=== PATIENT | female | born 1960 | race Caucasian/White ===

== ENCOUNTER 2018-10-27 09:33 | Day surgery (SDC) | payer OTHER ==
[2018-10-22 14:44] VITALS: BMI 30.6
[2018-10-27] MEDS ORDERED: Oxymetazoline HCl 0.05% ( 15 ML ) ONE ×2 (11:11→11:41)
[2018-10-27] MEDS ORDERED: Lidocaine 1% w/Epinephrine 1:100K 30 ML VIAL ONE (11:41)
[2018-10-27] MEDS ORDERED: Fentanyl 100 MCG/2 ML VIAL ONE ×2 (11:49→13:19)
[2018-10-27] MEDS ORDERED: Midazolam HCl 2 mg/2 ml Vial ONE (11:49)
[2018-10-27] MEDS ORDERED: Hydrocodone-Acetamin 15 ML UDCUP ONE (14:27)
[2018-10-27] MEDS ORDERED: Glycopyrrolate 0.2 MG/ML 5 ML SYRINGE ONE (18:56)
[2018-10-27] MEDS ORDERED: PROPOFOL 200 MG/20 ML VIAL ONE (18:56)
[2018-10-27] MEDS ORDERED: Dexamethasone 20 MG/5 ML VIAL ONE (18:56)
[2018-10-27] MEDS ORDERED: Lidocaine 1% PF 5 ML VIAL ONE (18:56)
[2018-10-27] MEDS ORDERED: Ondansetron PF 4 MG/2 ML Vial ONE (18:56)
[2018-10-27] MEDS ORDERED: PHENYLEPHRINE-NS 100 MCG/ML 10 ML SYRINGE ONE (18:56)
--- NOTE | 2018-10-28 01:26 | OP ---
DATE OF PROCEDURE: 10/27/2018 PREOPERATIVE DIAGNOSES: 1. Chronic rhinosinusitis. 2. Bilateral inferior turbinate hypertrophy. 3. Nasal obstruction. POSTOPERATIVE DIAGNOSES: 1. Chronic rhinosinusitis. 2. Bilateral inferior turbinate hypertrophy. 3. Nasal obstruction. PROCEDURES: 1. Bilateral endoscopic sinus surgery total ethmoidectomies. 2. Bilateral endoscopic sinus surgery maxillary antrostomies. 3. Bilateral endoscopic sinus surgery frontal sinusotomies. 4. Bilateral endoscopic sinus surgery sphenoidotomies. 5. Bilateral inferior turbinate submucosal resection. ESTIMATED BLOOD LOSS: 20 mL. COMPLICATIONS: None. ANESTHESIA: GETA. DESCRIPTION OF PROCEDURE: The patient was taken to the operating room and placed supine on table. General endotracheal anesthesia was obtained by the anesthesia staff. The tube was secured in the left lower lip. The patient was then prepped and draped for standard nasal procedures. Following this, a 0 degree endoscopes was used to examine the nasal cavity. 1% lidocaine with 1:100,000 epinephrine was injected into the inferior turbinates and middle turbinates and lateral nasal wall. Following this, the middle turbinates were gently medialized using a Hamilton elevator and the uncinate process was visualized bilaterally. Following this, the uncinate process was then anteriorly fractured using a ball-ended probe and then was removed bilaterally using the straight microdebrider and up-biting Blakesley forceps. Following this, the natural maxillary sinus ostia was visualized bilaterally and was gently widened using the curved microdebrider and straight Blakesley forceps bilaterally. The ethmoidal bulla was identified and was punctured on its medial and inferior aspect using the straight microdebrider and was removed using the straight microdebrider and the upbiting Blakesley forceps. Following this, the grand lamella was identified and was punctured into the posterior ethmoidal cells working from posterior to anterior. The ethmoidal cells were opened in a mucosal sparing technique. Following this, the sphenoid sinuses were approached staying medial to the middle turbinate with attachment of the superior turbinates and the posterior nasal wall was identified, staying just medial and inferior to this attachment. A Linder tip suction was used to create a sphenoidotomy bilaterally. Following this, a sphenoidotomy was gently widened medially and inferiorly using the microdebrider bilaterally. Following this, a 45 degree scope and the curved microdebrider were used to further visualize the frontal recess and frontal sinus area. The frontal sinus ostia was gently widened using the curved microdebrider bilaterally. Following this, the inferior turbinates were identified and punctured on the anterior and inferior aspect using submucosal microdebrider. Submucosal resection was performed of the anterior and inferior portions of the inferior turbinates bilaterally. Following this, the nasal cavity was irrigated. MeroPack was placed within the middle meatus. The patient tolerated the procedure well. Job ID: [id number]
== END 2018-10-27 15:11 | disposition home or self-care (01) ==
LOC: SDC 09:33
PROVIDERS: ATTEND Otolaryngology Plastic Surgery within the Head & Neck
PROC: 099T8ZZ Drainage of Left Frontal Sinus, Via Natural or Artificial Opening Endoscopic (ICD-10-PCS; principal; 2018-10-27)
PROC: 099Q8ZZ Drainage of Right Maxillary Sinus, Via Natural or Artificial Opening Endoscopic (ICD-10-PCS; principal; 2018-10-27)
PROC: 099W8ZZ Drainage of Right Sphenoid Sinus, Via Natural or Artificial Opening Endoscopic (ICD-10-PCS; principal; 2018-10-27)
PROC: 099R8ZZ Drainage of Left Maxillary Sinus, Via Natural or Artificial Opening Endoscopic (ICD-10-PCS; principal; 2018-10-27)
PROC: 099S8ZZ Drainage of Right Frontal Sinus, Via Natural or Artificial Opening Endoscopic (ICD-10-PCS; principal; 2018-10-27)
PROC: 09TU8ZZ Resection of Right Ethmoid Sinus, Via Natural or Artificial Opening Endoscopic (ICD-10-PCS; principal; 2018-10-27)
PROC: 09TL8ZZ Resection of Nasal Turbinate, Via Natural or Artificial Opening Endoscopic (ICD-10-PCS; principal; 2018-10-27)
PROC: 099X8ZZ Drainage of Left Sphenoid Sinus, Via Natural or Artificial Opening Endoscopic (ICD-10-PCS; principal; 2018-10-27)
PROC: 09TV8ZZ Resection of Left Ethmoid Sinus, Via Natural or Artificial Opening Endoscopic (ICD-10-PCS; principal; 2018-10-27)
DX: J32.4 Chronic pansinusitis (principal); J34.3 Hypertrophy of nasal turbinates; J34.89 Other specified disorders of nose and nasal sinuses; E78.00 Pure hypercholesterolemia, unspecified; M19.90 Unspecified osteoarthritis, unspecified site; J30.9 Allergic rhinitis, unspecified
CPT/HCPCS: 36415; 85014; 93005; 93010; 96374; J0131; J1100; J2001; J2250; J2405; J2704; J3010